=== PATIENT | male | born 1965 | race Two or more races ===

== ENCOUNTER 2017-08-10 12:50 | Outpatient (CLI) | payer OTHER ==
[~2017-08-10 12:50] MED LIST: AMOX1TAB5 PO; DICLOFENAC POTA50 MG PO; FOLIC ACID0.4 MG; METHOCARBAMOL500 MG PO; NORVASC; NORVASC5 MG; SINGULAIR10 MG; TIZANIDINE HCL2 MG PO
== END 2017-08-10 15:00 | disposition home or self-care (01) ==
LOC: RAD 12:50
DX: I10 Essential (primary) hypertension (principal)